=== PATIENT | female | born 1980 | race Caucasian/White ===

== ENCOUNTER 2024-06-12 16:56 | Emergency (ER) | payer OTHER, SELFPAY ==
[2024-06-12 17:02] VITALS: BP 159/108; PULSE 120; TEMP 36.7; O2SAT 97; BMI 53.8
[2024-06-12 17:23] LABS: Bilirubin Urine MODERATE (NEGATIVE); Blood Urine NEGATIVE (NEGATIVE); Clarity Urine CLEAR (CLEAR); Color Urine DK. YELLOW (YELLOW); Glucose Urine UA NEGATIVE (NEGATIVE); Ketones Urine 15 mg/dL (NEGATIVE); Leukocyte Esterase Urine NEGATIVE (NEGATIVE); Nitrite Urine NEGATIVE (NEGATIVE); Protein Urine TRACE mg/dL (NEG/TRACE); Specific Gravity Urine >=1.030 (1.005-1.025)
[2024-06-12 17:31] LABS: Bacteria Urine TRACE #/HPF (NONE SEEN); Crystals Seen? None Seen #/HPF (None Seen); Mucus Urine LARGE (NONE SEEN); RBC Urine 0-2 #/HPF (0-2); Squamous Epithelial Cell Urine MODERATE #/LPF (NONE/RARE)
[2024-06-12 17:32] LABS: Cast Seen? SEEN #/LPF (NONE SEEN); Hyaline Casts Urine RARE; Urine Culture Indicated NO
--- NOTE | 2024-06-12 17:38 | ED.FEMALEGU1 ---
HPI - Female Genitourinary General Chief complaint: Urogenital-Female Stated complaint: UTI Time Seen by Provider: 06/12/24 17:10 Source: patient Mode of arrival: walk-in Limitations: no limitations History of Present Illness HPI Narrative: 43-year-old female presents here with chief complaint of increased urinary frequency. She states she has a history of UTIs but has been several years since she had an infection. States she has had the symptoms for the last several days. Denies fevers chills nausea or vomiting. Patient denies vaginal bleeding discharge or possible STI Related Data Previous Rx's ?Medication ?Instructions ?Recorded phenazopyridine 100 mg tablet 100 mg PO Q8H 6 doses #6 tabs 06/12/24 (Pyridium) Allergies Allergy/AdvReac Type Severity Reaction Status Date / Time Penicillins Allergy Severe Rash Verified 06/12/24 17:05 Review of Systems ROS Status of ROS 10 or more systems reviewed and unremarkable except as noted in history and below PFSH PFSH Social History Little interest or pleasure in doing things: not at all Feeling down, depressed, or hopeless: not at all Exam Narrative Exam Narrative: All Systems are negative except as noted/marked.All systems reviewed and otherwise negative Nurses note and vital signs reviewed and patient is not hypoxic. General: The patient appears well and in no apparent distress. Patient is resting comfortably on cart. Skin: Warm, dry, no pallor noted. There is no rash noted. Head: Normocephalic, atraumatic Eye: Normal conjunctiva, no drainage, EOMI. PERRL Ears, Nose, Mouth, and Throat: oral mucosa is moist. Nares patent. Mouth without vesicles. Ear canals patent. Tm's without Erythema Cardiovascular: Regular Rate and Rhythm Respiratory: Patient is in no distress, no accessory muscle use, lungs are clear to auscultation, no wheezing, rales or rhonchi Back: non-tender, no CVA tenderness bilaterally to percussion. GI: Normal bowel sounds, no tenderness to palpation, no masses appreciated. No rebound, guarding, or rigidity noted. Musculoskeletal: The patient has no evidence of calf tenderness, no pitting edema, symmetrical pulses noted bilaterally Neurological: A&O x4, normal speech Psychiatric: Cooperative Constitutional Vital Signs, click to edit/add: Last Vital Signs Temp 98.1 F 06/12/24 17:02 Pulse 120 H 03/16/25 17:02 Resp 20 06/12/24 17:02 BP 159/108 H 06/12/24 17:02 Pulse Ox 97 06/12/24 17:02 Course Vital Signs Vital signs: Vital Signs Temperature 98.1 F 06/12/24 17:02 Pulse Rate 120 H 06/12/24 17:02 Respiratory Rate 20 06/12/24 17:02 Blood Pressure 159/108 H 06/12/24 17:02 Pulse Oximetry 97 06/12/24 17:02 Temperature 98.1 F 06/12/24 17:02 Pulse Rate 120 H 06/12/24 17:02 Respiratory Rate 20 06/12/24 17:02 Blood Pressure 159/108 H 06/12/24 17:02 Pulse Oximetry 97 06/12/24 17:02 MDM - Female Genitourinary MDM Narrative Medical decision making narrative: Patient presented for increased urinary symptoms and dysuria. Urinalysis obtained showed no acute bacteria or nitrites. Patient was medicated here with Pyridium. She will be discharged home prescription of Pyridium for dysuria. Patient encouraged follow-up primary care physician. Plan of care. Differential Diagnosis Differential diagnosis: Likely urinary tract infection, bacterial vaginosis and cervicitis Medical Records Attestation: I reviewed the patient's medical records. Lab Data Attestation: I reviewed the patient's lab results. Labs: Lab Results 06/12/24 Range/Units 17:14 Urine Color Dk. yellow (YELLOW) Urine Clarity Clear (CLEAR) Urine pH 5.0 (5.0-9.0) Ur Specific [place] >=1.030 A (1.005-1.025) Urine Protein Trace (NEG/TRACE) mg/dL Urine Glucose (UA) Negative (NEGATIVE) mg/dL Urine Ketones 15 A (NEGATIVE) mg/dL Urine Occult Blood Negative (NEGATIVE) Urine Nitrite Negative (NEGATIVE) Urine Bilirubin Moderate A (NEGATIVE) Urine Urobilinogen 1.0 (0.2-1.0) EU/dL Ur Leukocyte Esterase Negative (NEGATIVE) Urine RBC 0-2 (0-2) #/HPF Urine WBC 2-5 A (NONE SEEN) #/HPF Ur Squamous Epith Cells Moderate A (NONE/RARE) #/LPF Urine Crystals None seen (None Seen) #/HPF Urine Bacteria Trace A (NONE SEEN) #/HPF Urine Casts Seen A (NONE SEEN) #/LPF Hyaline Casts Rare Urine Mucus Large A (NONE SEEN) Ur Culture Indicated? No Discharge Plan Discharge Chief Complaint: Urogenital-Female Clinical Impression: Dysuria Patient Disposition: Home, Self-Care Time of Disposition Decision: 17:36 Condition: Good Prescriptions / Home Meds: New phenazopyridine [Pyridium] 100 mg tablet 100 mg PO Q8H Qty: 6 0RF Print Language: Citizen Of [place] Instructions: Dysuria (ED) Referrals: Physician,Non-Staff, MD [Primary Care Provider] - 1 week
[2024-06-12] MEDS: PHENAZOPYRIDINE 100 MG TABLET 200 MG PO (17:45)
[2024-06-12 17:48] VITALS: BP 153/90
== END 2024-06-12 17:51 | disposition home or self-care (01) ==
PROVIDERS: Physician Assistant; Emergency Provider Emergency Medicine
DX: R30.0 Dysuria (principal); Z87.440 Personal history of urinary (tract) infections
CPT/HCPCS: 81001; 99283